=== PATIENT | female | born 1955 | race African-American/Black ===

== ENCOUNTER 2022-09-01 15:46 | Emergency (ER) | payer MEDICARE ==
[~2022-09-01] VITALS: Ht 162.6 cm; Wt 147.0 kg
[2022-09-01 15:54] VITALS: BP 144/73
== END 2022-09-01 16:40 | disposition left against medical advice (07) ==
LOC: ER 15:46
DX: Z53.21 Procedure and treatment not carried out due to patient leaving prior to being seen by health care provider (principal)
CPT/HCPCS: 99281